=== PATIENT | male | born 1965 | race Caucasian/White ===

== ENCOUNTER → 2023-06-29 | Outpatient (CLI) | payer OTHER ==
[2023-06-30 02:45] LABS: Basophils # (A) 0.06 X 10*3/uL (0.00-0.10); Basophils % (A) 0.8 %; Eosinophils # (A) 0.19 X 10*3/uL (0.04-0.35); Eosinophils % (A) 2.6 %; HGB 13.5 g/dL (13.0-17.0); Lymphocytes % (A) 32.8 %; MCH 33.4 pg (27.0-32.0); MCHC 34.6 g/dL (32.0-37.0); MCV 96.5 FL (80.0-97.0); Mean Platelet Volume 9.6 FL (9.5-12.2); Monocytes # (A) 0.49 X 10*3/uL (0.20-1.00); Monocytes % (A) 6.7 %; NRBC Per 100 WBC 0 X 10*3/uL (0.00-0.01); Neutrophils # (A) 4.17 X 10*3/uL (1.80-7.70); Platelet Count 313 X 10*3/uL (140-440); RBC 4.04 X 10*6/uL (4.40-5.60); RDW 13.2 % (11.5-14.5); WBC 7.32 X 10*3/uL (4.50-10.00)
== END | disposition home or self-care (01) ==
LOC: LABPAT 15:28
PROVIDERS: ATTEND Surgery
DX: Z01.812 Encounter for preprocedural laboratory examination (principal); K43.9 Ventral hernia without obstruction or gangrene
CPT/HCPCS: 85025; 86850; 86900; 86901; 93005

== ENCOUNTER 2023-07-04 07:23 | Day surgery (SDC) | payer OTHER ==
[~2023-07-04 07:23] MED LIST: LACTATED RINGERS 1,000 ML IV SCH; MIDAZOLAM 2 MG/2 ML VIAL IV PRN
[2023-07-04] MEDS: DEXAMETHASONE SOD PHOSPHATE 4 MG/ML 1 ML VIAL IV ONE (08:11)
[2023-07-04] MEDS: ACETAMINOPHEN TAB 500 MG TAB PO PRN (08:11)
[2023-07-04] MEDS: ONDANSETRON 4 MG/2 ML VIAL IVP ONE (08:11)
[2023-07-04] MEDS: SCOPOLAMINE 1 MG/72 HR PATCH TRANSDERM ONE (08:11)
[2023-07-04] MEDS: LACTATED RINGERS 1,000 ML IV ONE ×2 (08:11→10:02)
[2023-07-04] MEDS: MIDAZOLAM 2 MG/2 ML VIAL IVP ONE (08:46)
[2023-07-04] MEDS ORDERED: PROPOFOL 10 MG/ML 20 ML VIAL IV ONE (09:07)
[2023-07-04] MEDS ORDERED: ROPIVACAINE 5 MG/ML 30 ML VIAL ONE (09:07)
[2023-07-04] MEDS ORDERED: GLYCOPYRROLATE 0.2 MG/ML 2 ML VIAL ONE (09:07)
[2023-07-04] MEDS ORDERED: DEXAMETHASONE SOD PHOSPHATE 10 MG/ML 1 ML VIAL ONE (09:07)
[2023-07-04] MEDS ORDERED: HYDROmorphone (PF) 1 MG/ML ONE (09:07)
[2023-07-04] MEDS ORDERED: SODIUM CHLORIDE 0.9% (PF) 10 ML VIAL ONE (09:07)
[2023-07-04] MEDS ORDERED: ROCURONIUM 10 MG/ML (5 ML VIAL) IV ONE (09:07)
[2023-07-04] MEDS ORDERED: KETAMINE HCL IN 0.9 % NACL 50 MG/5 ML SYRINGE ONE (09:07)
[2023-07-04] MEDS ORDERED: SUCCINYLCHOLINE CHLORIDE 200 MG/10 ML VIAL IV ONE (09:07)
[2023-07-04] MEDS ORDERED: MIDAZOLAM 2 MG/2 ML VIAL ONE (09:07)
[2023-07-04] MEDS ORDERED: NEOSTIGMINE 1 MG/ML 10 ML VIAL ONE (09:07)
[2023-07-04] MEDS ORDERED: KETOROLAC 15 MG/ML 1 ML VIAL ONE (09:07)
[2023-07-04] MEDS ORDERED: LIDOCAINE 1% INJ 10MG/ML (20 ML MDV) ONE (09:07)
[2023-07-04] MEDS ORDERED: fentaNYL (PF) 50 MCG/ML 2 ML AMP ONE (09:07)
[2023-07-04] MEDS: LIDOCAINE 1%-EPI 1:100,000 50 ML VIAL SQ ONE ×2 (09:08→09:43)
[2023-07-04] MEDS: HEPARIN SODIUM,PORCINE 5,000 UNIT/ML 1 ML VIAL SQ PRN (09:09)
--- NOTE | 2023-07-04 09:32 | P.ANPRN ---
Procedure Note - Anesthesia - Nerve Block Performed Bilateral Erector Spinae Single Time Out Performed: Yes Date of Procedure: 07/04/23 Procedure Start Time: 08:45 Procedure Stop Time: 09:00 Location of Patient: PreOp Indication: Acute Post-Operative Pain, Requested by Surgeon Sedation Type: Sedate with meaningful contact maintained Preparation: Sterile Prep, Sterile Dressing Position: Prone Catheter: None Needle Types: Facet Needle Gauge: 20 Ultrasound used to visualize needle placement: Yes Ultrasound used to observe medication spread: Yes Injectate: Other (see comment) (Ropivacaine 0.25% 30 ml per side + decadron 5 mg per side) Blood Aspirated: No Pain Paresthesia on Injection Noted: No Resistance on Injection: Normal Image Stored and Saved: Yes Events: Uneventful and Well Tolerated
--- NOTE | 2023-07-04 10:11 | P.OP ---
Date of Procedure: 07/04/23 Preoperative Diagnosis: Incarcerated ventral hernia Postoperative Diagnosis: Incarcerated ventral hernia Procedure(s) Performed: Laparoscopic robotic-assisted repair of incarcerated ventral hernia Partial omentectomy Transverse abdominal plane block Anesthesia: MAC Surgeon: Efe Hansen Estimated Blood Loss (ml): 5 Pathology: other (Omentum) Condition: stable Disposition: PACU Description of Procedure: The patient was placed on the operating table in the supine position. He received general anesthesia. His abdomen was prepped and draped usual fashion. Using a 5 mm optical trocar under direct visualization the peritoneal cavity was entered in the left upper quadrant. The abdomen was then insufflated. The laparoscope was placed back into the perineal cavity. Next a 8 mm robotic trocar was placed in the left lower quadrant and a 12 mm robotic trocar was placed in the left lateral position. The original 5 mm trocar was exchanged for a 8 mm robotic trocar. Next a 4 quadrant transverse abdominal lock was performed 1% local Xylocaine. The patient's placed in the left side up position. And the patient was docked to the robot. The ventral hernia was visualized. Using hook cautery the peritoneum over the ventral hernia was excised. The fascial opening was repaired using 0V LOC suture. Next a piece of 11 cm round ventral light ST mesh was placed into the. Cavity and secured with 2 OV lock suture. The patient was undocked the robot. The needles were retrieved. The fascia of the 12 mm trocar site was closed with 0 Ethibond suture. Skin was closed interrupted 3-0 Monocryl suture. Dermabond dressings was applied. Patient tolerated procedure well and was sent to recovery room stable condition.
[2023-07-04] MEDS: fentaNYL (PF) 50 MCG/ML 2 ML AMP IV PRN (10:17)
[2023-07-04] MEDS: MEPERIDINE 50 MG/ML SYRINGE IVP ONE (10:26)
[2023-07-04 10:46] VITALS: TEMP 97.8
[2023-07-04 12:31] VITALS: RESP 18
[2023-07-04 15:28] VITALS: BP 134/79; PULSE 77
== END 2023-07-04 15:25 | disposition home or self-care (01) ==
LOC: OR 07:23
PROVIDERS: ATTEND Surgery
DX: K43.6 Other and unspecified ventral hernia with obstruction, without gangrene (principal); J45.909 Unspecified asthma, uncomplicated; F17.200 Nicotine dependence, unspecified, uncomplicated; Z88.6 Allergy status to analgesic agent; Z91.048 Other nonmedicinal substance allergy status; Z79.51 Long term (current) use of inhaled steroids
CPT/HCPCS: 49594; S2900; 64999; 88302

== ENCOUNTER → 2024-10-28 | Outpatient (CLI) | payer OTHER ==
--- NOTE | 2024-11-03 23:04 | CTL ---
EXAMINATION TYPE: CT Low Dose Lung DATE OF EXAM: 10/28/2024 11:44 AM COMPARISON: None. CLINICAL INDICATION: Male, 59 years old with history of Z12.2 LUNG CA SCR F17.210, Current smoker, 1 ppd x 40 years hx asthma, History of tobacco use. TECHNIQUE: Low dose computed tomography scan was performed through the chest at 1 mm thick sections a nd reconstructed images in multiple planes at 1 mm and [address] DLP: 59 mGycm, CT CTDI: 1.61 mGy, Automated exposure control for dose reduction was used. CT DIAGNOSTIC QUALITY: Satisfactory FINDINGS: Heart normal size without pericardial effusion. No significant coronary calcifications are seen. Aorta normal caliber with conventional arch vessel branching anatomy. A few scattered nonenlarged lower paratracheal and AP window lymph nodes measuring up to 6 mm. Some strandy scarring/atelectasis in the lower lungs. [id number]-do-[id number] diffuse bronchial wall thicken ing. Moderate emphysematous change. Mild biapical pleural-parenchymal scarring. * 4 mm pulmonary nodule lateral right upper lobe, axial image 37. * 4 mm right mid lung pulmonary nodule, axial image 186. * 3 mm lateral left upper lobe, axial image 86. * 4 mm left mid lung pulmonary nodule, axial image 139. * Punctate 2 mm left lower lobe pulmonary nodule, axial images to 12. Visualized upper abdomen shows mild to moderate stool. No other gross abnormality. Bones: No osseous destructive process. IMPRESSION: 1. LungRADS 2, benign. A few scattered pulmonary nodules measuring up to 4 mm in Baseline screening. 2. COPD with moderate emphysema and scattered strandy scarring/atelectasis in the lower lungs. Advise smoking cessation. CT LUNG RAD AND CT CHEST RECOMMENDATION: Lung-Rad 2 Benign Appearance or Behavior: Continue annual sc reening with LDCT in 12 months. S Modifier (other clinically significant findings): None [facility], , 11/03/2024 11:01 PM
== END | disposition home or self-care (01) ==
LOC: RADCTMAIN 10:35
PROVIDERS: ATTEND Family Medicine
DX: Z12.2 Encounter for screening for malignant neoplasm of respiratory organs (principal); F17.210 Nicotine dependence, cigarettes, uncomplicated; J43.9 Emphysema, unspecified
CPT/HCPCS: 71271